=== PATIENT | male | born 1935 | race Caucasian/White ===

== ENCOUNTER 2017-12-26 06:41 | Emergency (ER) | payer BC, OTHER ==
[2017-12-26 06:59] VITALS: TEMP 99.7; BMI 24.9
--- NOTE | 2017-12-26 07:12 | PDOC ---
History of Present Illness - General Chief Complaint: Respiratory Stated Complaint: COUGH Time Seen by Provider: 12/26/17 07:12 - History of Present Illness Initial Comments: 12/26/17 07:12 Mr. Phipps is an 82 yo male w/ pmh of HTN, HLD, asthma, and CABG ( approx. 15 years ago) who presents c/o a 2 day history of cough. He denies any sputum production but says that he came in because he was up all last night coughing. Patient also reports that he has run out of his inhaler medication. The patient denies chest pain, shortness of breath, headache and dizziness. Denies fever, chills, nausea, vomit, diarrhea and constipation. Denies dysuria, frequency, urgency and hematuria. Allergies: NKDA Past History - Past Medical History Allergies/Adverse Reactions: Allergies Allergy/AdvReac Type Severity Reaction Status Date / Time No Known Allergies Allergy Verified 12/26/17 06:59 Home Medications: Ambulatory Orders Albuterol Sulfate Inhaler - [Ventolin Hfa Inhaler -] 1 puff IH PRN PRN #1 inhaler 12/26/17 Clopidogrel Bisulfate [Plavix] 75 mg PO DAILY 12/26/17 Hydrochlorothiazide 12.5 mg PO DAILY 12/26/17 Montelukast Sodium [Singulair] 10 mg PO DAILY 12/26/17 Prednisone [Deltasone] 40 mg PO DAILY 4 Days #8 tablet 12/26/17 Simvastatin 40 mg PO DAILY 12/26/17 - Suicide/Smoking/Psychosocial Hx Smoking History: Never smoked Have you smoked in the past 12 months: No Information on smoking cessation initiated: No Hx Alcohol Use: No Drug/Substance Use Hx: No Review of Systems - Review of Systems Comments:: 12/26/17 07:44 GENERAL/CONSTITUTIONAL: No fever or chills. No weakness. HEAD, EYES, EARS, NOSE AND THROAT: No change in vision. No ear pain or discharge. No sore throat. CARDIOVASCULAR: No chest pain or shortness of breath RESPIRATORY: +Cough as described. No wheezing or hemoptysis. GASTROINTESTINAL: No nausea, vomiting, diarrhea or constipation. GENITOURINARY: No dysuria, frequency, or change in urination. MUSCULOSKELETAL: No joint or muscle swelling or pain. No neck or back pain. SKIN: No rash NEUROLOGIC: No headache, vertigo, loss of consciousness, or change in strength/ sensation. ENDOCRINE: No increased thirst. No abnormal weight change HEMATOLOGIC/LYMPHATIC: No anemia, easy bleeding, or history of blood clots. ALLERGIC/IMMUNOLOGIC: No hives or skin allergy. *Physical Exam - Vital Signs Last Vital Signs Temp Pulse Resp BP Pulse Ox 99.7 F H 69 22 159/84 97 12/26/17 06:57 12/26/17 06:57 12/26/17 06:57 12/26/17 06:57 12/26/17 06:57 - Physical Exam Comments: 12/26/17 07:44 GENERAL: Awake, alert, and fully oriented, in no acute distress HEAD: No signs of trauma, normocephalic, atraumatic EYES: PERRLA, EOMI, sclera anicteric, conjunctiva clear ENT: Auricles normal inspection, hearing grossly normal, nares patent, oropharynx clear without exudates. Moist mucosa NECK: Normal ROM, supple, no lymphadenopathy, JVD, or masses LUNGS: +Mild tightness noted in lungs. Speaks full sentences HEART: Regular rate and rhythm, normal S1 and S2, no murmurs, rubs or gallops, peripheral pulses normal and equal bilaterally. ABDOMEN: Soft, nontender, normoactive bowel sounds. No guarding, no rebound. No masses EXTREMITIES: Normal inspection, Normal range of motion, no edema. No clubbing or cyanosis. NEUROLOGICAL: Cranial nerves II through XII grossly intact. Normal speech, normal gait, no focal sensorimotor deficits SKIN: Warm, Dry, normal turgor, no rashes or lesions noted. ED Treatment Course - LABORATORY CBC & Chemistry Diagram: 12/26/17 07:48 12/26/17 07:48 Medical Decision Making - Medical Decision Making 12/26/17 09:23 Mr. Phipps is an 82 yo male w/ pmh as described presenting with acute viral asthma exacerbation. Patient grabs grossly wnl as below; CXR shows no acute pathology. Patient currently oxygenating well after single duo-neb treatment. 12/26/17 09:37 Prednisone burst therapy and new Rx for rescue inhaler sent to patient's pharmacy. Patient now able to ambulate without difficulty or SOB throughout unit. Discharging to home w/ instructions to f/u w/ PCP for further care. Patient verbalized understanding and agreement and will comply. *DC/Admit/Observation/Transfer Diagnosis at time of Disposition: Cough - Discharge Dispostion Disposition: HOME Condition at time of disposition: Fair - Prescriptions Prescriptions: Albuterol Sulfate Inhaler - [Ventolin Hfa Inhaler -] 1 puff IH PRN PRN #1 inhaler PRN Reason: Dyspnea Prednisone [Deltasone] 40 mg PO DAILY 4 Days #8 tablet - Referrals Referrals: ON STAFF,NOT [Primary Care Provider] - Lorenzo Hatch MD [Staff Physician] - - Patient Instructions Printed Discharge Instructions: DI for Asthma -- Adult, DI for Cough -- Adult Additional Instructions: Please return if any difficulty breathing or continued cough. Follow-up with primary care physician as needed for further evaluation. Take prescriptions as written for relief from symptoms. - Post Discharge Activity
--- NOTE | 2017-12-26 07:36 | PDOC ---
Attending Attestation - Resident Resident Name: RolandnakulashelyKuldipNikko - ED Attending Attestation I have performed the following: I have examined & evaluated the patient, The case was reviewed & discussed with the resident, I agree w/resident's findings & plan, Exceptions are as noted - HPI HPI: 12/26/17 07:35 82y M from [place] , pmhx htn, hl, cad sp cabg, asthmapresents with 2 day history of cough, no spuutm production, body aches, fever/chills, congestion, leg swelling, hemoptysis, stahl, orthopnea. No sick contacts but endorses recent travel from [place]. On exam pt well appearing in no distress scattered wheez on pulm exam cardiac: 5/6 systolic murmer, r r r abd soft nontender ext: neg edema, no calf tenderness, neg homans suspect viral syndrome - Physicial Exam PE: 12/26/17 16:18 see above - Medical Decision Making 12/26/17 09:34 pt feeling improved abmulating around the ED without any sob or stahl will dc with steroid burst and albuterol pmd fu return precautions were discussed I discussed the physical exam findings, ancillary test results and final diagnoses with the patient. I answered all of the patient's questions. The patient was satisfied with the care received and felt comfortable with the discharge plan and treatment plan. The patient will call their primary care physician within 24 hours to arrange follow-up and will return to the Emergency Department with any new, persistent or worsening symptoms. Heart Score/ECG Review - ECG Impressions Comment:: 12/26/17 09:34 Twelve-lead EKG was performed and reviewed by me. There is normal sinus rhythm with a normal rate. Rate of 74 The axis is normal. The intervals are normal. There is normal R wave progression Nonspecific T wave abnormality
[2017-12-26] MEDS ORDERED: ALBUTEROL SO4 2.5/IPRATROPIUM 0.5 INH SOL 3 ML VIAL.NEB. NEB ONE (07:50)
[2017-12-26 08:13] LABS: EOS % 2.2 % (0-4.5); HEMATOCRIT 39.4 % (35.4-49); HEMOGLOBIN 12.7 GM/dL (11.7-16.9); LYMPH % 11.2 % (8-40); MCH 29.2 pg (25.7-33.7); MCHC 32.1 g/dl (32.0-35.9); MEAN PLT VOLUME 10.7 fl (7.5-11.1); MONO % 17.6 % (3.8-10.2); PLATELET COUNT 149 K/MM3 (134-434); RBC 4.33 M/mm3 (4.00-5.60); RDW 13.7 % (11.9-15.9); WHITE BLOOD COUNT 6.5 K/mm3 (4.0-10.0)
[2017-12-26 08:32] LABS: ALBUMIN 4.2 g/dl (3.4-5.0); ANION GAP 8 (8-16); BLOOD UREA NITROGEN 15 mg/dL (7-18); CALCIUM 8.2 mg/dL (8.5-10.1); CHLORIDE 105 mmol/L (98-107); CO2 27 mmol/L (21-32); CREATININE 1.7 mg/dL (0.7-1.3); GLUCOSE,RANDOM 90 mg/dL (74-106); POTASSIUM 4.9 mmol/L (3.5-5.1); SGOT/AST 22 U/L (15-37); SGPT/ALT 20 U/L (12-78); SODIUM 140 mmol/L (136-145)
[2017-12-26 08:36] LABS: ALK PHOS 85 U/L (45-117); BILIRUBIN,TOTAL 0.6 mg/dL (0.2-1.0); TOT PROT 7.8 g/dl (6.4-8.2)
[2017-12-26 09:55] VITALS: BP 123/60; PULSE 74
--- NOTE | 2017-12-26 18:34 | EKG ---
Test Reason : Blood Pressure : / mmHG Vent. Rate : 074 BPM Atrial Rate : 074 BPM P-R Int : 190 ms QRS Dur : 066 ms QT Int : 364 ms P-R-T Axes : 071 034 092 degrees QTc Int : 404 ms NORMAL SINUS RHYTHM NONSPECIFIC T WAVE ABNORMALITY ABNORMAL ECG WHEN COMPARED WITH ECG OF 14-FEB-2009 15:10, NO SIGNIFICANT CHANGE WAS FOUND Confirmed by MD ABILIO, RENEA ([id number]) on 12/26/2017 6:33:48 PM Referred By: Confirmed By:RENEA KNOX MD
== END 2017-12-26 09:55 | disposition home or self-care (01) ==
LOC: JER 06:41 → SUPCPDRO 06:41 → JER 09:55
PROC: 3E0F7GC Introduction of Other Therapeutic Substance into Respiratory Tract, Via Natural or Artificial Opening (ICD-10-PCS; principal; 2017-12-26)
DX: J45.901 Unspecified asthma with (acute) exacerbation (principal); I25.10 Atherosclerotic heart disease of native coronary artery without angina pectoris; I10 Essential (primary) hypertension; Z95.1 Presence of aortocoronary bypass graft; E78.00 Pure hypercholesterolemia, unspecified
CPT/HCPCS: 36415; 71046-TC-FY; 80053; 82550; 82553; 84484; 85025; 93005; 93010; 94640; 99285-25

== ENCOUNTER 2019-01-31 10:41 | Observation (INO) | payer BC, OTHER ==
[2019-01-31 11:09] VITALS: BMI 27.3
[2019-01-31] MEDS ORDERED: methylPREDNISolone NA SUCC 125 MG/2 ML VIAL IVPB ONE (12:10)
--- NOTE | 2019-01-31 12:25 | PDOC ---
Attending Attestation - Resident Resident Name: YovannyBruce - ED Attending Attestation I have performed the following: I have examined & evaluated the patient, The case was reviewed & discussed with the resident, I agree w/resident's findings & plan, Exceptions are as noted - HPI HPI: 01/31/19 12:31 Pt is an 83 yo M h/o CAD s/p PCI, stent, CABG, Asthma, BPH who present with a complaint of cough which has been present for the past 3 days No chest pain, fevers, chills No palpitations Pt denies orthopnea Pt denies dyspnea on exertion Pt travelled from [place] 1 month ago 01/31/19 12:48 - Physicial Exam PE: 01/31/19 12:29 GENERAL: The patient is in no acute distress. ENT: Ears normal, nares patent, oropharynx clear without exudates. Moist mucous membranes. NECK: Normal range of motion, supple, no nuchal rigidity LUNGS: Breath sounds equal, clear to auscultation bilaterally. No wheezes, and no crackles. HEART:Regular rate and rhythm, normal S1 and S2 without murmur, rub or gallop. ABDOMEN: Soft, nontender, normoactive bowel sounds. EXTREMITIES: Normal range of motion, no edema. NEUROLOGICAL: Cranial nerves II through XII grossly intact. Normal speech. No focal neurological deficits. SKIN: Warm, Dry, normal turgor, no rashes or lesions noted. - Medical Decision Making 01/31/19 12:29 EKG: Afib rate of 73 bpm, axis nml, no st elevation or depression, t waves upright 01/31/19 12:30 01/31/19 13:44 Laboratory Tests 01/31/19 01/31/19 12:43 12:43 WBC 7.7 Hgb 13.2 Hct 39.4 Plt Count 194 D BUN 13 Creatinine 1.4 H Creatine Kinase 307 Troponin I 0.02 New onset Afib Upper respiratory infection Will place on observation CXR- pending 01/31/19 15:45 EKG - Afib rate of 102 bpm, axis nml, intervals nml, no st elevation or depression Cardizem 10mg IV given Cardizem po given Cardiology consult
--- NOTE | 2019-01-31 12:47 | PDOC ---
History of Present Illness - General Chief Complaint: Respiratory Stated Complaint: ASTHMA Time Seen by Provider: 01/31/19 12:00 History Source: Patient Exam Limitations: No Limitations - History of Present Illness Initial Comments: 01/31/19 12:47 Patient is a 83F with history of HTN, HLD, asthma, CABG 15 years ago here today complaining of cough and shortness of breath for the past 3 days. Denies fevers , chills, nausea, vomiting. Denies chest pain, palpitations. Denies history of afib, not on blood thinners. Denies leg swelling[place] Takes plavix. Endorses sputum change. No PE history. No leg swelling. Past History - Past Medical History Allergies/Adverse Reactions: Allergies Allergy/AdvReac Type Severity Reaction Status Date / Time Penicillins Allergy Verified 01/31/19 11:00 Home Medications: Ambulatory Orders Albuterol Sulfate Inhaler - [Ventolin Hfa Inhaler -] 1 puff IH PRN PRN #1 inhaler 12/26/17 Clopidogrel Bisulfate [Plavix] 75 mg PO DAILY 12/26/17 Hydrochlorothiazide 12.5 mg PO DAILY 12/26/17 Montelukast Sodium [Singulair] 10 mg PO DAILY 12/26/17 Prednisone [Deltasone] 40 mg PO DAILY 4 Days #8 tablet 12/26/17 Simvastatin 40 mg PO DAILY 12/26/17 Cardiac Disorders: Yes COPD: No HTN: Yes Hypercholesterolemia: Yes - Suicide/Smoking/Psychosocial Hx Smoking History: Former smoker Have you smoked in the past 12 months: No Information on smoking cessation initiated: Yes Hx Alcohol Use: No Drug/Substance Use Hx: No Substance Use Type: None Review of Systems - Review of Systems Able to Perform ROS?: Yes Comments:: 01/31/19 12:50 GENERAL/CONSTITUTIONAL: No fever or chills. No weakness. HEAD, EYES, EARS, NOSE AND THROAT: No change in vision. NNo sore throat. CARDIOVASCULAR: No chest pain or shortness of breath RESPIRATORY: +cough, +wheezing, no hemoptysis. GASTROINTESTINAL: No nausea, vomiting, diarrhea or constipation. GENITOURINARY: No dysuria, frequency, or change in urination. MUSCULOSKELETAL: No joint or muscle swelling or pain. No neck or back pain. SKIN: No rash NEUROLOGIC: No headache, vertigo, loss of consciousness, or change in strength/ sensation. ENDOCRINE: No increased thirst. No abnormal weight change HEMATOLOGIC/LYMPHATIC: No anemia, easy bleeding, or history of blood clots. ALLERGIC/IMMUNOLOGIC: No hives or skin allergy. *Physical Exam - Vital Signs Last Vital Signs Temp Pulse Resp BP Pulse Ox 99.1 F 83 17 127/56 L 97 01/31/19 11:01 01/31/19 11:01 01/31/19 11:01 01/31/19 11:01/31/19 11:01 - Physical Exam Comments: 01/31/19 12:51 GENERAL: Awake, alert, and fully oriented, in no acute distress HEAD: No signs of trauma, normocephalic, atraumatic EYES: PERRLA, EOMI, sclera anicteric, conjunctiva clear ENT: Auricles normal inspection, hearing grossly normal, nares patent, oropharynx clear without exudates. Moist mucosa NECK: Normal ROM, supple, no lymphadenopathy, JVD, or masses LUNGS: No distress, speaks full sentences, wheezing bilaterally HEART: Regular rate and rhythm, normal S1 and S2, no murmurs, rubs or gallops, peripheral pulses normal and equal bilaterally. ABDOMEN: Soft, nontender, normoactive bowel sounds. No guarding, no rebound. No masses EXTREMITIES: Normal inspection, Normal range of motion, no edema. No clubbing or cyanosis. NEUROLOGICAL: Cranial nerves II through XII grossly intact. Normal speech, no focal sensorimotor deficits SKIN: Warm, Dry, normal turgor, no rashes or lesions noted. ED Treatment Course - LABORATORY CBC & Chemistry Diagram: 01/31/19 12:43 01/31/19 12:43 - RADIOLOGY Radiology Studies Ordered: Category Date Time Status CHEST PA & LAT [RAD] Stat Radiology 01/31/19 12:07 Ordered Medical Decision Making - Medical Decision Making 01/31/19 12:51 Patient is 83M with history of HTN, HLD, asthma and CABG here today complaining of cough and shortness of breath. Vitals normal and stable. DDx includes, but is not limited to: copd, asthma, pneumonia, chf. Likely copd/asthma exacerbation. Will treat with duonebs and steroids. EKG shows afib with rate of 73. No st elevations/depressions. Normal axis. Normal intervals. No significant t wave abnormalities. No history of afib, medication list confirmed with pharmacy. Will likely require obs. 01/31/19 14:39 CBC reassuring. CMP reassuring. Trop negative. CXR clear. Patient reassessed, lungs now clear, feeling better. Will admit for new-onset afib. 01/31/19 15:25 On reassessment, HR 135. BP 130s/70s. Given 10mg dilt, HR now in 80s, bps stable. Given po chaser. Case discussed with Dr Mcnair, accepted to tele. *DC/Admit/Observation/Transfer Diagnosis at time of Disposition: New onset a-fib, Atrial fibrillation with RVR - Discharge Dispostion Condition at time of disposition: Stable Decision to Admit order: Yes - Referrals Referrals: ON STAFF,NOT [Primary Care Provider] - - Patient Instructions - Post Discharge Activity
[2019-01-31 12:55] LABS: HEMATOCRIT 39.4 % (35.4-49); HEMOGLOBIN 13.2 GM/dL (11.7-16.9); LYMPH % 28.8 % (8-40); MCH 29.6 pg (25.7-33.7); MCHC 33.6 g/dl (32.0-35.9); MEAN CELL VOLUME 88.2 fl (80-96); MEAN PLT VOLUME 10.1 fl (7.5-11.1); MONO % 18.7 % (3.8-10.2); NEUT % 49.5 % (42.8-82.8); PLATELET COUNT 194 K/MM3 (134-434); RBC 4.47 M/mm3 (4.00-5.60); RDW 13.2 % (11.9-15.9); WHITE BLOOD COUNT 7.7 K/mm3 (4.0-10.0)
[2019-01-31] MEDS ORDERED: ALBUTEROL SO4 2.5/IPRATROPIUM 0.5 INH SOL 3 ML VIAL.NEB. NEB ONE ×3 (12:55→20:20)
[2019-01-31] MEDS ORDERED: methylPREDNISolone NA SUCC 125 MG/2 ML VIAL ONE (12:56)
[2019-01-31] MEDS: ALBUTEROL SO4 2.5/IPRATROPIUM 0.5 INH SOL 3 ML VIAL.NEB. NEB SCH ×3 (13:13→20:40)
[2019-01-31 13:16] LABS: INR 1.03 (0.83-1.09); PROTHROMBIN TIME (PATIENT) 12.1 SEC (9.7-13.0)
[2019-01-31 13:32] LABS: ALBUMIN 3.7 g/dl (3.4-5.0); ALK PHOS 98 U/L (45-117); ANION GAP 7 MMOL/L (8-16); BILIRUBIN,TOTAL 0.4 mg/dL (0.2-1); BLOOD UREA NITROGEN 13 mg/dL (7-18); CALCIUM 9.1 mg/dL (8.5-10.1); CHLORIDE 104 mmol/L (98-107); CO2 26 mmol/L (21-32); CREATININE 1.4 mg/dL (0.55-1.3); GLUCOSE,RANDOM 92 mg/dL (74-106); MAGNESIUM 2.4 mg/dL (1.8-2.4); POTASSIUM 4.3 mmol/L (3.5-5.1); SGOT/AST 24 U/L (15-37); SGPT/ALT 25 U/L (13-61); SODIUM 136 mmol/L (136-145); TOT PROT 7.4 g/dl (6.4-8.2)
[2019-01-31] MEDS ORDERED: dilTIAZem HCL 50 MG/10 ML - 10 ML VIAL IVPUSH ONE (15:12)
[2019-01-31] MEDS ORDERED: SODIUM CHLORIDE 1,000 ML IV STA (15:12)
[2019-01-31] MEDS ORDERED: dilTIAZem HCL 125 MG/25 ML - 25 ML VIAL ONE (15:15)
[2019-01-31] MEDS ORDERED: dilTIAZem HCL 60 MG TABLET (FP) PO ONE (15:25)
[2019-01-31] MEDS ORDERED: dilTIAZem HCL 60 MG TABLET (FP) ONE (15:29)
[2019-01-31] MEDS ORDERED: LEVALBUTEROL HCL 0.31 MG/3 ML VIAL.NEB IH PRN (15:58)
[2019-01-31] MEDS ORDERED: HEPARIN NA (PORCINE) 5,000 UNITS/ML 1ML VIAL IVPUSH PRN ×2 (15:59)
[2019-01-31] MEDS ORDERED: HEPARIN SOD,PORK IN 0.45% NACL 25,000 UNIT/500 ML INFUS.BAG IVPB SCH (16:00)
--- NOTE | 2019-01-31 16:05 | PN ---
Teaching Attending Note Name of Resident: Chantale Mcnair ATTENDING PHYSICIAN STATEMENT I saw and evaluated the patient. I reviewed the resident's note and discussed the case with the resident. I agree with the resident's findings and plan as documented with exceptions below. [employer]: Dr. Sander Huffman and [phone] PCP: Dr. Fay Prather SUBJECTIVE: 83 yom, from [place], with PMHx of HTN, HLD, COPD/asthma, ex-heavy smoker, CAD s/p CABG 15 years ago (No hospitalization since per patient),?CKD stage II comes with 3 days of dry non productive cough, shortness of breath and URI like symptoms. Denies any fevers, chills, chest pain, palpitations, dizziness, abdominal or urinary symptoms. patient unsure if has been on a blood thinner in the past. 12 point ROS done, neg for prior headache, bleed or dark or bloody stools. Feels better currently. Was noted with Afib 73 in the ED, ?new onset. HR 110-130s in the ED, currently 80s OBJECTIVE: Vital Signs Period Temp Pulse Resp BP Sys/Dangelo Pulse Ox Last 24 Hr 99.1 F 80-112 14-17 127-185/56-83 97-100 Intake & Output 01/28/19 01/29/19 01/30/19 01/31/19 23:59 23:59 23:59 23:59 Weight 140 lb GENERAL: Awake, alert, and fully oriented, in no acute distressm, noted with coughing paroxysms during the exam. HEAD: Normal with no signs of trauma. EYES: Pupils equal, round and reactive to light, extraocular movements intact, sclera anicteric, conjunctiva clear. No lid lag. EARS, NOSE, THROAT: Ears normal, nares patent, oropharynx clear without exudates. Moist mucous membranes. NECK: Normal range of motion, supple, no JVD visualized LUNGS: decreased air entry bilaterally, no wheezing or rales appreciated HEART: S1S2 irregularly irregular in left parasternal region ABDOMEN: Soft, nontender, not distended, normoactive bowel sounds, no guarding, no rebound, no masses. MUSCULOSKELETAL: Normal range of motion at all joints. No bony deformities or tenderness. No CVA tenderness. UPPER EXTREMITIES: 2+ pulses, warm, well-perfused. No cyanosis. No clubbing. No peripheral edema. LOWER EXTREMITIES: 2+ pulses, warm, well-perfused. No calf tenderness. No peripheral edema. NEUROLOGICAL: AAOx3, power 5/5 sensation intact to lightCranial nerves II-XII intact. Normal speech. Normal gait. PSYCHIATRIC: Cooperative. Good eye contact. Appropriate mood and affect. SKIN: Warm, dry, normal turgor, no rashes or lesions noted, normal capillary refill. Home Medications Medication Instructions Recorded Albuterol Sulfate Inhaler - 1 - 2 inh PO Q4H PRN 01/31/19 [Ventolin Hfa Inhaler -] Amlodipine Besylate 5 mg PO DAILY 01/31/19 Clopidogrel Bisulfate [Plavix] 75 mg PO DAILY 01/31/19 Hydralazine HCl 25 mg PO BID 01/31/19 Montelukast Sodium [Singulair] 10 mg PO DAILY 01/31/19 Simvastatin 40 mg PO DAILY 01/31/19 Tamsulosin HCl [Flomax] 0.4 mg PO DAILY 01/31/19 Active Medications Albuterol/Ipratropium (Duoneb -) 1 amp NEB RQID KYA Atorvastatin Calcium (Lipitor -) 20 mg PO HS KYA Diltiazem HCl (Cardizem -) 30 mg PO Q6HPO [facility] Heparin Sodium (Porcine) (Heparin -) 1,000 unit IVPUSH PRN PRN PRN Reason: Heparin Heparin Sodium (Porcine) (Heparin -) 5,000 unit IVPUSH PRN PRN PRN Reason: Heparin HEPARIN SOD,PORK IN 0.45% NACL (Heparin-1/2ns 25,000 Units/500) 25,000 unit in 500 mls @ 16 mls/hr IVPB TITR KYA; Protocol Levalbuterol HCl (Xopenex) 0.31 mg IH Q8H PRN PRN Reason: ASTHMA Montelukast Sodium (Singulair -) 10 mg PO DAILY KYA Prednisone (Deltasone -) 40 mg PO DAILY [facility] Laboratory Results - last 24 hr 01/31/19 01/31/19 01/31/19 12:43 12:43 12:43 WBC 7.7 RBC 4.47 Hgb 13.2 Hct 39.4 MCV 88.2 MCH 29.6 MCHC 33.6 RDW 13.2 Plt Count 194 D MPV 10.1 Absolute Neuts (auto) 3.8 Neutrophils % 49.5 D Lymphocytes % 28.8 D Monocytes % 18.7 H Eosinophils % 2.0 Basophils % 1.0 Nucleated RBC % 0 PT with INR 12.10 INR 1.03 Sodium 136 Potassium 4.3 Chloride 104 Carbon Dioxide 26 Anion Gap 7 L BUN 13 Creatinine 1.4 H Creat Clearance w eGFR 48.40 Random Glucose 92 Calcium 9.1 Magnesium 2.4 Total Bilirubin 0.4 AST 24 ALT 25 Alkaline Phosphatase 98 Creatine Kinase 307 Creatine Kinase Index 0.6 CK-MB (CK-2) 2.1 Troponin I 0.02 Total Protein 7.4 Albumin 3.7 Telemetry currently Afib 80s (HR 110s-130s around 2 PM, aflutter/fibrillation EKG 1 Afib 73, no acute ST-T changes EKG 2 Afib 100s, otherwise unchanged CXR images reviewed by me, no acute process, follow up official read ASSESSMENT AND PLAN: 83 yom, from [place], with PMHx of HTN, HLD, COPD/asthma, ex-heavy smoker, CAD s/p CABG 15 years ago (No hospitalization since per patient),?CKD stage II admitted with COPD exacerbation, found with Afib with RVR -Acute COPD exacerbation in the setting of recent URI like symptoms -Afib with RVR, ?New onset -Elevated Cr, 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 Unclear if afib is new. Cardizem 30mg PO q6h. Hold other anti-htn medications to allow room for rate controlling agents. 2D echo CHADSVasc2 of 4. Patient on plavix but reports no hospitalization or concerns since his CABG 15 years ago, no recent stents. Given CKD, will place on heparin drip and likely transition to NOAC if Echo confirms non valvular Afib. Hold plavix tonight. Cardiology consult and follow up for additonal AC recommendations. Patient's hotel breakfast attendant Dr. Boucher's office contacted, ([phone]). Will be available tomorrow 11 AM. Will retrieve more information in AM [id number] as above Dispo admit to obs, d/c in 24 hours if rate controlled, breathing better and no new events. Plan discussed with patient in detail, all questions answered. total admit time 55 min.
--- NOTE | 2019-01-31 16:10 | HP ---
CHIEF COMPLAINT: sob PCP: HISTORY OF PRESENT ILLNESS: This is a 83 year old male from [place], visiting, past medical history significant for CABG, CAD, HTN, asthma, former smoker, who presents with shortness of breath and productive cough with yellow sputum production x3 days. Found to be in atrial fibrillation with RVR in ER. Denies FRANCES< blurry vision, fever, chills, n, v, palpitations, orthopnea, edema, melena. Recent Travel: yes form [place] PAST MEDICAL HISTORY: CABG many years ago, HTN, HLD, asthma PAST SURGICAL HISTORY: CABG Social History: Smoking:quit 20yrs ago; smoked >40yrs Alcohol:no Drugs: no Family History: Allergies Penicillins Allergy (Verified 01/31/19 11:00) HOME MEDICATIONS: Home Medications Medication Instructions Recorded Albuterol Sulfate Inhaler - 1 puff IH PRN PRN #1 inhaler 12/26/17 [Ventolin Hfa Inhaler -] Clopidogrel Bisulfate [Plavix] 75 mg PO DAILY 12/26/17 Montelukast Sodium [Singulair] 10 mg PO DAILY 12/26/17 Simvastatin 40 mg PO DAILY 12/26/17 REVIEW OF SYSTEMS CONSTITUTIONAL: Absent: fever, chills, diaphoresis, generalized weakness, malaise, loss of appetite, weight change HEENT: Absent: rhinorrhea, nasal congestion, throat pain, throat swelling, difficulty swallowing, mouth swelling, ear pain, eye pain, visual changes CARDIOVASCULAR: Absent: chest pain, syncope, palpitations, irregular heart rate, lightheadedness , peripheral edema RESPIRATORY: Absent: cough, shortness of breath, dyspnea with exertion, orthopnea, wheezing, stridor, hemoptysis GASTROINTESTINAL: Absent: abdominal pain, abdominal distension, nausea, vomiting, diarrhea, constipation, melena, hematochezia GENITOURINARY: Absent: dysuria, frequency, urgency, hesitancy, hematuria, flank pain, genital pain MUSCULOSKELETAL: Absent: myalgia, arthralgia, joint swelling, back pain, neck pain SKIN: Absent: rash, itching, pallor HEMATOLOGIC/IMMUNOLOGIC: Absent: easy bleeding, easy bruising, lymphadenopathy, frequent infections ENDOCRINE: Absent: unexplained weight gain, unexplained weight loss, heat intolerance, cold intolerance NEUROLOGIC: Absent: headache, focal weakness or paresthesias, dizziness, unsteady gait, seizure, mental status changes, bladder or bowel incontinence PSYCHIATRIC: Absent: anxiety, depression, suicidal or homicidal ideation, hallucinations. PHYSICAL EXAMINATION Vital Signs - 24 hr 01/31/19 01/31/19 01/31/19 11:01 13:24 15:20 Temperature 99.1 F Pulse Rate 83 Pulse Rate [ 80 112 H Right Radial] Respiratory 17 16 14 Rate Blood Pressure 127/56 L Blood Pressure 185/83 H 135/74 [Left Arm] O2 Sat by Pulse 97 100 98 Oximetry (%) 01/31/19 15:34 Temperature Pulse Rate Pulse Rate [ 90 Right Radial] Respiratory Rate Blood Pressure Blood Pressure [Left Arm] O2 Sat by Pulse Oximetry (%) GENERAL: Awake, alert, and fully oriented, in no acute distress. HEAD: Normal with no signs of trauma. EYES: Pupils equal, round and reactive to light, extraocular movements intact, sclera anicteric, conjunctiva clear. No lid lag. EARS, NOSE, THROAT: Ears normal, nares patent, oropharynx clear without exudates. Moist mucous membranes. NECK: Normal range of motion, supple without lymphadenopathy, JVD, or masses. LUNGS: decrease breath sounds; mild wheeze HEART: Regular rate and rhythm, normal S1 and S2 +murmur, rub or gallop. ABDOMEN: Soft, nontender, not distended, normoactive bowel sounds, no guarding, no rebound, no masses. No hepatomegaly or splenomegaly. MUSCULOSKELETAL: Normal range of motion at all joints. No bony deformities or tenderness. No CVA tenderness. UPPER EXTREMITIES: 2+ pulses, warm, well-perfused. No cyanosis. No clubbing. No peripheral edema. LOWER EXTREMITIES: 2+ pulses, warm, well-perfused. No calf tenderness. No peripheral edema. NEUROLOGICAL: Cranial nerves II-XII intact. Normal speech. PSYCHIATRIC: Cooperative. Good eye contact. Appropriate mood and affect. SKIN: Warm, dry, normal turgor, no rashes or lesions noted, normal capillary refill. Laboratory Results - last 24 hr 01/31/19 01/31/19 01/31/19 12:43 12:43 12:43 WBC 7.7 RBC 4.47 Hgb 13.2 Hct 39.4 MCV 88.2 MCH 29.6 MCHC 33.6 RDW 13.2 Plt Count 194 D MPV 10.1 Absolute Neuts (auto) 3.8 Neutrophils % 49.5 D Lymphocytes % 28.8 D Monocytes % 18.7 H Eosinophils % 2.0 Basophils % 1.0 Nucleated RBC % 0 PT with INR 12.10 INR 1.03 Sodium 136 Potassium 4.3 Chloride 104 Carbon Dioxide 26 Anion Gap 7 L BUN 13 Creatinine 1.4 H Creat Clearance w eGFR 48.40 Random Glucose 92 Calcium 9.1 Magnesium 2.4 Total Bilirubin 0.4 AST 24 ALT 25 Alkaline Phosphatase 98 Creatine Kinase 307 Creatine Kinase Index 0.6 CK-MB (CK-2) 2.1 Troponin I 0.02 Total Protein 7.4 Albumin 3.7 ASSESSMENT/PLAN: This is a 83 year old male with a history of CABG, HTN, HLD, who presents with sob/cough with sputum production, found to be in rapid atrial fibrillation with RVR. #new onset atrial fibrillation with RVR -s/p IV cardizem -will give po cardizem for now; -get echo to eval LV function; then decided which rate control to give -start heparin drip for [id number] score 3 -PTT -TSH -cardiac monitoring -cardio consult #sob; possible sec to COPD? /asthma exacerbation from URI? -duonebs -steroids -monitor o2 -hold off on antibiotics -cxr -influenza swap -urine antigens -sptutm culture #HTN: -on hydralizine 25 bid at home -lisinopril 20qd #CKD hx; -cr 1.7 here; last year recorded here was 1.7; -not acute #hx cabg VTE ppl a; on heparin drip GIppl ;zant Disposition; tele Visit type - Emergency Visit Emergency Visit: Yes Care time: The patient presented to the Emergency Department on the above date and was hospitalized for further evaluation of their emergent condition. - New Patient This patient is new to me today: Yes Date on this admission: 01/31/19 - Critical Care Critical Care patient: No
[2019-01-31] MEDS ORDERED: ALBUTEROL SO4 0.083% IH SOL 2.5 MG/3 ML VIAL.NEB. NEB PRN (16:29)
[2019-01-31] MEDS ORDERED: HEPARIN INFUSION - 25,000 UNITS/500 ML INFUS.BAG IVPB ONE (16:29)
[2019-01-31] MEDS ORDERED: dilTIAZem HCL 50 MG/10 ML - 10 ML VIAL IVPUSH PRN (16:32)
[2019-01-31] MEDS ORDERED: dilTIAZem HCL 30 MG TABLET (FP) ONE (18:05)
[2019-01-31] MEDS: dilTIAZem HCL 30 MG TABLET (FP) PO SCH (18:27)
--- NOTE | 2019-01-31 23:42 | CON.CARD ---
Consult Consult Specialty:: cardiology Reason for Consultation:: ?new-onset AF - History of Present Illness History of Present Illness: Pt is an 83 yo man with h/o CAD s/p PCI, stent, CABG, Asthma, BPH who present with a complaint of cough which has been present for the past 3 days No chest pain, fevers, chills No palpitations Pt denies orthopnea Pt denies dyspnea on exertion Pt travelled from [place] 1 month ago Pt was noted to be in AF (no prior hx of the arrhythmia); HR later accelerated. - History Source History Provided By: Patient, Medical Record - Past Medical History Cardio/Vascular: Yes: CAD, HTN Pulmonary: Yes: Asthma - Past Surgical History Past Surgical History: Yes: CABG, Stent - Alcohol/Substance Use Hx Alcohol Use: No - Smoking History Smoking history: Former smoker Have you smoked in the past 12 months: No Home Medications - Allergies Allergies/Adverse Reactions: Allergies Allergy/AdvReac Type Severity Reaction Status Date / Time Penicillins Allergy Verified 01/31/19 11:00 - Home Medications Home Medications: Ambulatory Orders Albuterol Sulfate Inhaler - [Ventolin Hfa Inhaler -] 1 - 2 inh PO Q4H PRN Amlodipine Besylate 5 mg PO DAILY 01/31/19 Clopidogrel Bisulfate [Plavix] 75 mg PO DAILY 01/31/19 Hydralazine HCl 25 mg PO BID 01/31/19 Montelukast Sodium [Singulair] 10 mg PO DAILY 01/31/19 Simvastatin 40 mg PO DAILY 01/31/19 Tamsulosin HCl [Flomax] 0.4 mg PO DAILY 01/31/19 Family Disease History - Family Disease History Family History: Denies - Risk Factors Known Risk Factors: Yes: Age, Gender, Hypercholesterolemia, Hypertension Vital Signs: Vital Signs Temperature 99.1 F 01/31/19 11:01 Pulse Rate 80 01/31/19 18:26 Respiratory Rate 20 01/31/19 18:26 Blood Pressure 110/56 L 01/31/19 18:26 O2 Sat by Pulse Oximetry (%) 96 01/31/19 18:26 - Other Data Labs, Other Data: CBC, BMP 01/31/19 12:43 01/31/19 12:43 INR, PTT INR 1.03 (0.83-1.09) 01/31/19 12:43 Troponin, BNP 01/31/19 12:43 Troponin I 0.02 Troponin, BNP 01/31/19 12:43 Troponin I 0.02 Abnormal Lab Results 01/31/19 01/31/19 01/31/19 12:43 12:43 23:05 Monocytes % 18.7 H Anion Gap 7 L Creatinine 1.4 H B-Natriuretic Peptide 3609.3 H Echo: Pending Imaging - Results Chest X-ray: Image Reviewed (no acute infiltrate) EKG: Image Reviewed Problem List - Problems (1) HTN (hypertension) Assessment/Plan: on diltiazem for HR and BP control. F/u ECHO for LVEF, Wall thickness. Code(s): I10 - ESSENTIAL (PRIMARY) HYPERTENSION (2) New onset a-fib Assessment/Plan: On diltiazem for HR control. On IV heparin for anticoagulation. ECHO for LVEF, wall motion and thickness, chamber sizes, valve status. 1st TNI < 0.02. F/u EKG; telemetry. Code(s): I48.91 - UNSPECIFIED ATRIAL FIBRILLATION (3) Cough Code(s): R05 - COUGH (4) Asthma Assessment/Plan: remote history Code(s): J45.909 - UNSPECIFIED ASTHMA, UNCOMPLICATED (5) Hyperlipidemia Assessment/Plan: on statin. F/u lipid profile. Code(s): E78.5 - HYPERLIPIDEMIA, UNSPECIFIED
[2019-02-01] MEDS ORDERED: dilTIAZem HCL 30 MG TABLET (FP) ONE ×3 (01:00→12:19)
[2019-02-01] MEDS: dilTIAZem HCL 30 MG TABLET (FP) PO SCH ×3 (01:05→12:21)
[2019-02-01 01:59] LABS: EPI CELLS 0.5 /HPF (0-5); URINE APPEARANCE CLEAR; URINE BACTERIA 1.4 /hpf (NEGATIVE); URINE BILIRUBIN NEGATIVE (NEGATIVE); URINE CASTS 4 /hpf (0-8); URINE COLOR YELLOW; URINE GLUCOSE (UA) NEGATIVE (NEGATIVE); URINE KETONE TRACE (NEGATIVE); URINE LEUK ESTERASE NEGATIVE (NEGATIVE); URINE NITRITE NEGATIVE (NEGATIVE); URINE PROTEIN 1+ (NEGATIVE); URINE RBC 2 /hpf (0-4); URINE UROBILINOGEN 0.2 mg/dL (0.2-1.0); URINE WBC 1 /hpf (0-5)
[2019-02-01 02:46] LABS: INR 1.13 (0.83-1.09); PROTHROMBIN TIME (PATIENT) 13.4 SEC (9.7-13.0)
[2019-02-01 05:56] LABS: INR 1.1 (0.83-1.09)
[2019-02-01 06:07] LABS: ACTIVATED PTT 93.2 SECONDS (25.2-36.5)
[2019-02-01 06:19] LABS: ANION GAP 8 MMOL/L (8-16); BLOOD UREA NITROGEN 30 mg/dL (7-18); CALCIUM 8.7 mg/dL (8.5-10.1); CHLORIDE 105 mmol/L (98-107); CO2 24 mmol/L (21-32); GLUCOSE,RANDOM 154 mg/dL (74-106); MAGNESIUM 2.2 mg/dL (1.8-2.4); PHOSPHOROUS 3.7 mg/dL (2.5-4.9); POTASSIUM 4.6 mmol/L (3.5-5.1); SODIUM 137 mmol/L (136-145)
[2019-02-01 07:29] LABS: CHOLESTEROL 132 mg/dL (50-200); HDL CHOLESTEROL 43 mg/dL (40-60); TRIGLYCERIDES 75 mg/dL (0-150)
[2019-02-01 07:55] LABS: BASO % 0.1 % (0-2.0); HEMATOCRIT 36.7 % (35.4-49); HEMOGLOBIN 12.1 GM/dL (11.7-16.9); LYMPH % 14.8 % (8-40); MCH 29.3 pg (25.7-33.7); MEAN CELL VOLUME 88.7 fl (80-96); MEAN PLT VOLUME 11.1 fl (7.5-11.1); MONO % 2.2 % (3.8-10.2); NEUT % 82.9 % (42.8-82.8); PLATELET COUNT 201 K/MM3 (134-434); RBC 4.14 M/mm3 (4.00-5.60); RDW 13.2 % (11.9-15.9); WHITE BLOOD COUNT 6.8 K/mm3 (4.0-10.0)
[2019-02-01] MEDS: ALBUTEROL SO4 2.5/IPRATROPIUM 0.5 INH SOL 3 ML VIAL.NEB. NEB SCH ×2 (08:07→12:21)
--- NOTE | 2019-02-01 08:29 | PN ---
Teaching Attending Note Name of Resident: Chantale Mcnair ATTENDING PHYSICIAN STATEMENT I saw and evaluated the patient. I reviewed the resident's note and discussed the case with the resident. I agree with the resident's findings and plan as documented. SUBJECTIVE: Mr Soni Nguyen is without complaint today. Denies cp, sob, n/v OBJECTIVE: Last Vital Signs Temp Pulse Resp BP Pulse Ox 36.9 C 65 16 115/56 L 94 L 02/01/19 06:20 02/01/19 06:20 02/01/19 06:20 02/01/19 06:20 02/01/19 06:20 Gen: nad Pulm: ctab but with slight tightness in chest but no w/r/r, not requiring oxygen CV: irreg irreg but rate controlled w/o m/r/g Abd: +bs, s/nt/nd Ext: no c/c/e CBC, BMP 02/01/19 05:10 02/01/19 05:10 ASSESSMENT AND PLAN: Problem List - Problems (1) Atrial fibrillation with RVR Assessment/Plan: -rate controlled -cardiology following -currently on diltiazem 30mg q6h -can change to cardizem cd 240mg daily on discharge -on heparin gtt -consider eliquis 2.5mg bid since over 80 and Cr over 1.5 -ECHO being performed, follow up results -possible discharge today if ECHO normal Code(s): I48.91 - UNSPECIFIED ATRIAL FIBRILLATION (2) HTN (hypertension) Assessment/Plan: -continue cardizem Code(s): I10 - ESSENTIAL (PRIMARY) HYPERTENSION (3) Hyperlipidemia Assessment/Plan: -continue lipitor Code(s): E78.5 - HYPERLIPIDEMIA, UNSPECIFIED (4) CKD (chronic kidney disease) Assessment/Plan: -baseline Code(s): N18.9 - CHRONIC KIDNEY DISEASE, UNSPECIFIED Qualifiers: Chronic kidney disease stage: stage 3 (moderate) Qualified Code(s): N18.3 - Chronic kidney disease, stage 3 (moderate) (5) Asthma Assessment/Plan: -on prednisone for a short course -continue duonebs -controlled Code(s): J45.909 - UNSPECIFIED ASTHMA, UNCOMPLICATED
[2019-02-01] MEDS ORDERED: MONTELUKAST NA 10 MG TABLET PO SCH (10:00)
[2019-02-01] MEDS ORDERED: predniSONE 20 MG TABLET (UD) PO SCH (10:00)
[2019-02-01] MEDS ORDERED: MONTELUKAST NA 10 MG TABLET ONE (10:07)
--- NOTE | 2019-02-01 10:13 | EKG ---
Test Reason : Blood Pressure : / mmHG Vent. Rate : 073 BPM Atrial Rate : 468 BPM P-R Int : 000 ms QRS Dur : 062 ms QT Int : 422 ms P-R-T Axes : 000 025 031 degrees QTc Int : 464 ms ATRIAL FIBRILLATION NONSPECIFIC T WAVE ABNORMALITY PROLONGED QT ABNORMAL ECG WHEN COMPARED WITH ECG OF 26-DEC-2017 08:02, ATRIAL FIBRILLATION HAS REPLACED SINUS RHYTHM NONSPECIFIC T WAVE ABNORMALITY NOW EVIDENT IN INFERIOR LEADS NONSPECIFIC T WAVE ABNORMALITY, IMPROVED IN LATERAL LEADS QT HAS LENGTHENED Confirmed by ALO LOUIE, CATARINA ([id number]) on 02/01/2019 10:13:09 AM Referred By: Confirmed By:CATARINA PRAJAPATI MD
--- NOTE | 2019-02-01 10:15 | EKG ---
Test Reason : Blood Pressure : / mmHG Vent. Rate : 061 BPM Atrial Rate : 061 BPM P-R Int : 212 ms QRS Dur : 082 ms QT Int : 446 ms P-R-T Axes : 064 016 056 degrees QTc Int : 448 ms SINUS RHYTHM WITH 1ST DEGREE A-V BLOCK POSSIBLE INFERIOR INFARCT , AGE UNDETERMINED ABNORMAL ECG WHEN COMPARED WITH ECG OF 31-JAN-2019 15:11, SINUS RHYTHM HAS REPLACED ATRIAL FIBRILLATION VENT. RATE HAS DECREASED BY [address] NO LONGER DEPRESSED IN ANTERIOR LEADS NONSPECIFIC T WAVE ABNORMALITY NO LONGER EVIDENT IN ANTERIOR LEADS QT HAS LENGTHENED Confirmed by ALO LOUIE, CATARINA ([id number]) on 02/01/2019 10:15:43 AM Referred By: Confirmed By:CATARINA PRAJAPATI MD
--- NOTE | 2019-02-01 10:15 | EKG ---
Test Reason : Blood Pressure : / mmHG Vent. Rate : 102 BPM Atrial Rate : 416 BPM P-R Int : 000 ms QRS Dur : 064 ms QT Int : 272 ms P-R-T Axes : 000 018 -84 degrees QTc Int : 354 ms ATRIAL FIBRILLATION WITH RAPID VENTRICULAR RESPONSE NONSPECIFIC ST AND T WAVE ABNORMALITY ABNORMAL ECG WHEN COMPARED WITH ECG OF 26-DEC-2017 08:02, ATRIAL FIBRILLATION HAS REPLACED SINUS RHYTHM ST NOW DEPRESSED IN ANTERIOR LEADS NONSPECIFIC T WAVE ABNORMALITY NOW EVIDENT IN INFERIOR LEADS NONSPECIFIC T WAVE ABNORMALITY NOW EVIDENT IN ANTERIOR LEADS Confirmed by ALO LOUIE, CATARINA ([id number]) on 02/01/2019 10:15:20 AM Referred By: Confirmed By:CATARINA PRAJAPATI MD
--- NOTE | 2019-02-01 10:48 | PN ---
Progress Note, Physician History of Present Illness: Pt is an 83 yo man with h/o CAD s/p PCI, stent, CABG, Asthma, BPH who present with a complaint of cough which has been present for the past 3 days No chest pain, fevers, chills No palpitations Pt denies orthopnea Pt denies dyspnea on exertion Pt travelled from [place] 1 month ago - Current Medication List Current Medications: Active Medications Albuterol Sulfate (Ventolin 0.083% Nebulizer Soln -) 1 amp NEB Q1H PRN PRN Reason: SHORT OF BREATH/WHEEZING Albuterol/Ipratropium (Duoneb -) 1 amp NEB RQID [facility] Last Admin: 02/01/19 08:07 Dose: 1 amp Atorvastatin Calcium (Lipitor -) 20 mg PO HS [facility] Diltiazem HCl (Cardizem -) 30 mg PO Q6HPO [facility] Last Admin: 02/01/19 06:20 Dose: 30 mg Diltiazem HCl (Cardizem Injection -) 5 mg IVPUSH Q4H PRN PRN Reason: TACHYCARDIA Heparin Sodium (Porcine) (Heparin -) 1,000 unit IVPUSH PRN PRN PRN Reason: Heparin Heparin Sodium (Porcine) (Heparin -) 5,000 unit IVPUSH PRN PRN PRN Reason: Heparin HEPARIN SOD,PORK IN 0.45% NACL (Heparin-1/2ns 25,000 Units/500) 25,000 unit in 500 mls @ 16 mls/hr IVPB TITR [facility]; Protocol Last Titration: 02/01/19 06:51 Dose: 650 units/hr, 13 mls/hr Montelukast Sodium (Singulair -) 10 mg PO DAILY [facility] Last Admin: 02/01/19 10:15 Dose: 10 mg - Objective Vital Signs: Vital Signs Temperature 98.4 F 02/01/19 06:20 Pulse Rate 65 02/01/19 06:20 Respiratory Rate 16 02/01/19 06:20 Blood Pressure 115/56 L 02/01/19 06:20 O2 Sat by Pulse Oximetry (%) 94 L 02/01/19 06:20 Eyes: Yes: WNL, Conjunctiva Clear, EOM Intact HENT: Yes: WNL, Atraumatic, Normocephalic Neck: Yes: WNL, Supple, Trachea Midline Cardiovascular: Yes: Pulse Irregular, S1, S2 Respiratory: Yes: WNL, Regular, CTA Bilaterally Gastrointestinal: Yes: WNL, Normal Bowel Sounds Genitourinary: Yes: WNL Musculoskeletal: Yes: WNL Extremities: Yes: WNL Edema: No Integumentary: Yes: WNL Neurological: Yes: WNL, Alert, Oriented ...Motor Strength: WNL Psychiatric: Yes: WNL Labs: CBC, BMP 02/01/19 05:10 02/01/19 05:10 INR, PTT INR 1.10 (0.83-1.09) H 02/01/19 05:10 Assessment/Plan - Problems (1) HTN (hypertension) Assessment/Plan: on diltiazem for HR and BP control. F/u ECHO for LVEF, Wall thickness. Code(s): I10 - ESSENTIAL (PRIMARY) HYPERTENSION (2) New onset a-fib Assessment/Plan: On diltiazem for HR control. On IV heparin for anticoagulation. ECHO for LVEF, wall motion and thickness, chamber sizes, valve status. 1st TNI < 0.02. F/u EKG; telemetry. Code(s): I48.91 - UNSPECIFIED ATRIAL FIBRILLATION (3) Cough Code(s): R05 - COUGH (4) Asthma Assessment/Plan: remote history Code(s): J45.909 - UNSPECIFIED ASTHMA, UNCOMPLICATED (5) Hyperlipidemia Assessment/Plan: on statin. F/u lipid profile. Code(s): E78.5 - HYPERLIPIDEMIA, UNSPECIFIED
--- NOTE | 2019-02-01 11:31 | ECHO ---
Name: JOLIE LEBRON Exam:Adult Echocardiogram Study Date: 02/01/2019 08:14 AM Age: 83 yrs Reason For Study: NEW ONSET ATRIAL FIB Height: 60 in Weight: 140 lb BSA: 1.6 m2 MMode/2D Measurements & Calculations IVSd: 0.79 cm Ao root diam: 3.4 cm LVIDd: 4.6 cm LA dimension: 4.8 cm LVIDs: 3.5 cm ACS: 0.99 cm LVPWd: 0.97 cm IVSs: 0.68 cm LVPWs: 0.93 cm EDV(Teich): 98.0 ml ESV(Teich): 51.1 ml LVOT diam: 1.8 cm Doppler Measurements & Calculations MV E max christofer: 103.2 cm/sec Ao V2 max: 246.1 cm/sec MV A max christofer: 72.8 cm/sec Ao max P.3 mmHg MV E/A: 1.4 Ao V2 mean: 164.9 cm/sec Ao mean P.7 mmHg Ao V2 VTI: 56.4 cm SARKIS(I,D): 0.75 cm2 AI P1/2t: 416.3 msec SARKIS(V,D): 0.69 cm2 AI max christofer: 375.1 cm/sec LV V1 max P.8 mmHg AI max P.3 mmHg LV V1 mean P.0 mmHg AI dec slope: 263.9 cm/sec2 LV V1 max: 67.7 cm/sec LV V1 mean: 49.7 cm/sec LV V1 VTI: 16.8 cm MR max christofer: 461.5 cm/sec SV(LVOT): 42.3 ml MR max P.2 mmHg TR max christofer: 262.0 cm/sec Med Peak E' Christofer: 5.8 cm/sec TR max P.5 mmHg Med E/e': 17.7 Lat Peak E' Christofer: 7.7 cm/sec Lat E/e': 13.4 Procedure A two-dimensional transthoracic echocardiogram with color flow and Doppler was performed. Left Ventricle The left ventricular size, thickness and function are normal. The left ventricular ejection fraction is normal. The transmitral spectral Doppler flow pattern is suggestive of pseudonormalization. Septal mo tion is consistent with post-operative state. Right Ventricle The right ventricle is normal in size and function. Atria The left atrium is moderately dilated. The right atrium is moderately dilated. Mitral Valve There is mild mitral valve thickening. There is no mitral valve stenosis. There is mild mitral regurg itation. Tricuspid Valve There is mild tricuspid valve thickening. There is no tricuspid stenosis. There is mild tricuspid regurgitation. Right ventricular systolic pressure is elevated at 30-40mmHg. Aortic Valve The aortic valve is trileaflet. There is moderate aortic valve thickening. There is moderate aortic sclerosis.;. Hemodynamically significant valvular aortic stenosis cannot be excluded. Mild aortic regurgitation. Pulmonic Valve The pulmonic valve is not well visualized. Great Vessels The aortic root is normal size. Pericardium/Pleura There is no pericardial effusion. Interpretation Summary The left ventricular size, thickness and function are normal The left ventricular ejection fraction is normal. The left atrium is moderately dilated. The right atrium is moderately dilated. There is mild mitral regurgitation. There is mild tricuspid regurgitation. Right ventricular systolic pressure is elevated at 30-40mmHg. The aortic valve is trileaflet. There is moderate aortic valve thickening. There is moderate aortic sclerosis.; Hemodynamically significant valvular aortic stenosis cannot be excluded. Septal motion is consistent with post-operative state. The transmitral spectral Doppler flow pattern is suggestive of pseudonormalization. MD Carlos Rodriguez 02/01/2019 11:30 AM
[2019-02-01] MEDS ORDERED: APIXABAN 2.5 MG TABLET PO SCH (11:45)
[2019-02-01] MEDS ORDERED: APIXABAN 5 MG TABLET PO ONE (12:18)
[2019-02-01] MEDS ORDERED: ALBUTEROL SO4 2.5/IPRATROPIUM 0.5 INH SOL 3 ML VIAL.NEB. NEB ONE (12:20)
[2019-02-01 12:43] VITALS: PULSE 68
[2019-02-01 13:33] LABS: URINE APPEARANCE CLEAR; URINE BILIRUBIN NEGATIVE (NEGATIVE); URINE COLOR YELLOW; URINE GLUCOSE (UA) NEGATIVE (NEGATIVE); URINE KETONE TRACE (NEGATIVE); URINE LEUK ESTERASE NEGATIVE (NEGATIVE); URINE NITRITE NEGATIVE (NEGATIVE); URINE PROTEIN NEGATIVE (NEGATIVE)
[2019-02-01 13:45] LABS: RATIO URIN PROTEIN/URIN CREAT 0.07 MG/DL
--- NOTE | 2019-02-01 14:50 | DS ---
Physical Exam: SUBJECTIVE: Patient seen and examined; no complaints; rate controlled OBJECTIVE: Vital Signs Period Temp Pulse Resp BP Sys/Dangelo Pulse Ox Last 24 Hr 98.0 F-98.6 F 65-112 14-20 110-135/56-74 93-98 PHYSICAL EXAM GENERAL: The patient is awake, alert, and fully oriented, in no acute distress. LUNGS: Breath sounds equal, clear to auscultation bilaterally, no wheezes, no crackles, no accessory muscle use. HEART: Regular rate and rhythm, S1, S2 without murmur, rub or gallop. ABDOMEN: Soft, nontender, nondistended, normoactive bowel sounds, no guarding, no rebound, no hepatosplenomegaly, no masses. EXTREMITIES: 2+ pulses, warm, well-perfused, no edema. NEUROLOGICAL: Cranial nerves II through XII grossly intact. Normal speech, gait not observed. PSYCH: Normal mood, normal affect. SKIN: Warm, dry, normal turgor, no rashes or lesions noted. LABS Laboratory Results - last 24 hr 01/31/19 01/31/19 01/31/19 23:05 23:05 23:05 WBC RBC Hgb Hct MCV MCH MCHC RDW Plt Count MPV Absolute Neuts (auto) Neutrophils % Lymphocytes % Monocytes % Eosinophils % Basophils % Nucleated RBC % PT with INR INR PTT (Actin FS) Sodium Potassium Chloride Carbon Dioxide Anion Gap BUN Creatinine Creat Clearance w eGFR Random Glucose Calcium Phosphorus Magnesium Troponin I < 0.02 B-Natriuretic Peptide 3609.3 H Triglycerides Cholesterol Total LDL Cholesterol HDL Cholesterol TSH 0.52 Urine Color Urine Appearance Urine pH Ur Specific [place] Urine Protein Urine Glucose (UA) Urine Ketones Urine Blood Urine Nitrite Urine Bilirubin Urine Urobilinogen Ur Leukocyte Esterase Urine WBC (Auto) Urine RBC (Auto) Urine Casts (Auto) U Epithel Cells (Auto) Urine Bacteria (Auto) U Random Total Protein Ur Random Sodium Ur Random Chloride Urine Creatinine Protein/Creatinin Ratio Influenza A (Rapid) Influenza B (Rapid) 02/01/19 02/01/19 02/01/19 01:30 01:50 02:18 WBC RBC Hgb Hct MCV MCH MCHC RDW Plt Count MPV Absolute Neuts (auto) Neutrophils % Lymphocytes % Monocytes % Eosinophils % Basophils % Nucleated RBC % PT with INR 13.40 H INR 1.13 H PTT (Actin FS) 68.5 H Sodium Potassium Chloride Carbon Dioxide Anion Gap BUN Creatinine Creat Clearance w eGFR Random Glucose Calcium Phosphorus Magnesium Troponin I B-Natriuretic Peptide Triglycerides Cholesterol Total LDL Cholesterol HDL Cholesterol TSH Urine Color Yellow Urine Appearance Clear Urine pH 5.[address] [place] 1.019 Urine Protein 1+ H Urine Glucose (UA) Negative Urine Ketones Trace H Urine Blood Negative Urine Nitrite Negative Urine Bilirubin Negative Urine Urobilinogen 0.2 Ur Leukocyte Esterase Negative Urine WBC (Auto) 1 Urine RBC (Auto) 2 Urine Casts (Auto) 4 U Epithel Cells (Auto) 0.5 Urine Bacteria (Auto) 1.4 U Random Total Protein Ur Random Sodium Ur Random Chloride Urine Creatinine Protein/Creatinin Ratio Influenza A (Rapid) Influenza B (Rapid) 02/01/19 02/01/19 02/01/19 05:10 05:10 05:10 WBC 6.8 RBC 4.14 Hgb 12.1 Hct 36.7 MCV 88.7 MCH 29.3 MCHC 33.0 RDW 13.2 Plt Count 201 MPV 11.1 Absolute Neuts (auto) 5.6 Neutrophils % 82.9 H D Lymphocytes % 14.8 D Monocytes % 2.2 L D Eosinophils % 0.0 D Basophils % 0.1 Nucleated RBC % 0 PT with INR 13.00 INR 1.10 H PTT (Actin FS) 93.2 H Sodium 137 Potassium 4.6 Chloride 105 Carbon Dioxide 24 Anion Gap 8 BUN 30 H Creatinine 2.0 H Creat Clearance w eGFR 32.07 Random Glucose 154 H Calcium 8.7 Phosphorus 3.7 Magnesium 2.2 Troponin I B-Natriuretic Peptide Triglycerides 75 Cholesterol 132 Total LDL Cholesterol 78 HDL Cholesterol 43 TSH 0.52 Urine Color Urine Appearance Urine pH Ur Specific [place] Urine Protein Urine Glucose (UA) Urine Ketones Urine Blood Urine Nitrite Urine Bilirubin Urine Urobilinogen Ur Leukocyte Esterase Urine WBC (Auto) Urine RBC (Auto) Urine Casts (Auto) U Epithel Cells (Auto) Urine Bacteria (Auto) U Random Total Protein Ur Random Sodium Ur Random Chloride Urine Creatinine Protein/Creatinin Ratio Influenza A (Rapid) Influenza B (Rapid) 02/01/19 02/01/19 02/01/19 08:11 12:30 13:24 WBC RBC Hgb Hct MCV MCH MCHC RDW Plt Count MPV Absolute Neuts (auto) Neutrophils % Lymphocytes % Monocytes % Eosinophils % Basophils % Nucleated RBC % PT with INR INR PTT (Actin FS) 74.7 H Sodium Potassium Chloride Carbon Dioxide Anion Gap BUN Creatinine Creat Clearance w eGFR Random Glucose Calcium Phosphorus Magnesium Troponin I B-Natriuretic Peptide Triglycerides Cholesterol Total LDL Cholesterol HDL Cholesterol TSH Urine Color Urine Appearance Urine pH Ur Specific [place] Urine Protein Urine Glucose (UA) Urine Ketones Urine Blood Urine Nitrite Urine Bilirubin Urine Urobilinogen Ur Leukocyte Esterase Urine WBC (Auto) Urine RBC (Auto) Urine Casts (Auto) U Epithel Cells (Auto) Urine Bacteria (Auto) U Random Total Protein Ur Random Sodium < 18 L Ur Random Chloride < 11 L Urine Creatinine Protein/Creatinin Ratio Influenza A (Rapid) Negative Influenza B (Rapid) Negative 02/01/19 02/01/19 13:24 13:24 WBC RBC Hgb Hct MCV MCH MCHC RDW Plt Count MPV Absolute Neuts (auto) Neutrophils % Lymphocytes % Monocytes % Eosinophils % Basophils % Nucleated RBC % PT with INR INR PTT (Actin FS) Sodium Potassium Chloride Carbon Dioxide Anion Gap BUN Creatinine Creat Clearance w eGFR Random Glucose Calcium Phosphorus Magnesium Troponin I B-Natriuretic Peptide Triglycerides Cholesterol Total LDL Cholesterol HDL Cholesterol TSH Urine Color Yellow Urine Appearance Clear Urine pH 5.[address] [place] 1.022 Urine Protein Negative Urine Glucose (UA) Negative Urine Ketones Trace H Urine Blood Negative Urine Nitrite Negative Urine Bilirubin Negative Urine Urobilinogen 1.0 Ur Leukocyte Esterase Negative Urine WBC (Auto) Urine RBC (Auto) Urine Casts (Auto) U Epithel Cells (Auto) Urine Bacteria (Auto) U Random Total Protein 19.4 H Ur Random Sodium Ur Random Chloride Urine Creatinine 246.0 Protein/Creatinin Ratio 0.070 Influenza A (Rapid) Influenza B (Rapid) HOSPITAL COURSE: Date of Admission:01/31/19 Date of Discharge: 02/01/19 This is a 83 year old male with a history of CABG, HTN, HLD, who presents with sob/cough with sputum production, found to be in rapid atrial fibrillation with RVR. Evaluated by cardiology. Started on heparin drip and rate controlled with cardizem 30mg po q6h. Sent home on eliquis 2.5mg daily and cardizem 240mg daily. Minutes to complete discharge: 35 Discharge Summary Reason For Visit: [employer] Current Active Problems Asthma (Acute) Atrial fibrillation with RVR (Acute) CKD (chronic kidney disease) (Acute) HTN (hypertension) (Acute) Hyperlipidemia (Acute) New onset a-fib (Acute) Condition: Stable - Instructions Diet, Activity, Other Instructions: Mr. Shafer, you have been evaluated for shortness of breath. You were found to have an irregular heart rhythm called atrial fibrillation. We are starting you on two new medications. Cardizem, is a blood pressure medication that controls your heart rate. Eliquis is a blood thinner, to help prevent strokes in people with atrial fibrillation. Medications: START cardizem 240mg daily START eliquis 2.5 mg twice per day STOP taking plavix STOP taking amlodipine continue all other prescribed mediations Please follow up with your primary with in one week. Please follow up with the player piano technician that you have been referred to with in one week. If you experience any worsening of symptoms, including chest pain, shortness of breath, leg swelling, bleeding, dark stools, please return to the emergency room. Referrals: Micah Davalos MD [Staff Physician] - Disposition: HOME - Home Medications Comprehensive Discharge Medication List: Ambulatory Orders Albuterol Sulfate Inhaler - [Ventolin HFA Inhaler -] 1 - 2 inh PO Q4H PRN Montelukast Sodium [Singulair] 10 mg PO DAILY 01/31/19 Simvastatin 40 mg PO DAILY 01/31/19 Tamsulosin HCl [Flomax] 0.4 mg PO DAILY 01/31/19 Apixaban [Eliquis -] 2.5 mg PO BID 30 Days #60 tablet 02/01/19 Diltiazem Cd [Cardizem Cd -] 240 mg PO DAILY #30 cap.cd.24h 02/01/19 This patient is new to me today: Yes Date on this admission: 02/01/19 Emergency Visit: Yes ED Registration Date: 01/31/19 Care time: The patient presented to the Emergency Department on the above date and was hospitalized for further evaluation of their emergent condition. Critical Care patient: No - Discharge Referral Referred to [facility] Med [facility] No
[2019-02-01 15:35] VITALS: BP 137/63; TEMP 98.2
[2019-02-01] MEDS ORDERED: ATORVASTATIN CA 20 MG TABLET (FP) PO SCH (22:00)
== END 2019-02-01 15:34 | disposition home or self-care (01) ==
LOC: JER 10:41 → JERBED 14:40
PROVIDERS: ADMIT Hospitalist; ATTEND Internal Medicine
PROC: 3E0333Z Introduction of Anti-inflammatory into Peripheral Vein, Percutaneous Approach (ICD-10-PCS; principal; 2019-01-31)
PROC: 3E033GC Introduction of Other Therapeutic Substance into Peripheral Vein, Percutaneous Approach (ICD-10-PCS; 2019-01-31)
PROC: 3E0337Z Introduction of Electrolytic and Water Balance Substance into Peripheral Vein, Percutaneous Approach (ICD-10-PCS; 2019-01-31)
PROC: 3E0F7GC Introduction of Other Therapeutic Substance into Respiratory Tract, Via Natural or Artificial Opening (ICD-10-PCS; 2019-01-31)
DX: I48.91 Unspecified atrial fibrillation (principal); I12.9 Hypertensive chronic kidney disease with stage 1 through stage 4 chronic kidney disease, or unspecified chronic kidney disease; N18.3 Chronic kidney disease, stage 3 (moderate); E78.5 Hyperlipidemia, unspecified; J45.909 Unspecified asthma, uncomplicated; I25.10 Atherosclerotic heart disease of native coronary artery without angina pectoris; N40.0 Benign prostatic hyperplasia without lower urinary tract symptoms; J06.9 Acute upper respiratory infection, unspecified; R79.89 Other specified abnormal findings of blood chemistry; R05 Cough; Z95.5 Presence of coronary angioplasty implant and graft; Z87.891 Personal history of nicotine dependence; Z95.1 Presence of aortocoronary bypass graft; Z88.0 Allergy status to penicillin
CPT/HCPCS: 36415; 71045-TC-FY; 80048; 80053; 80061; 81003; 82436; 82550; 82553; 82570; 83721; 83735; 83880; 84100; 84133; 84156; 84300; 84443; 84484; 85025; 85610; 85730; 87086; 87804; 87899; 93005; 93010; 93306-TC; 94640; 96361; 96374; 99285-25; G0378; J7030

== ENCOUNTER 2024-09-14 05:10 | Inpatient (IN) | payer MEDICARE, OTHER ==
[2024-09-14 05:47] LABS: BASO % 0.6 % (0-2.0); EOS % 0.7 % (0-4.5); HEMOGLOBIN 13.5 GM/dL (11.7-16.9); MCH 29.6 pg (25.7-33.7); MCHC 32.8 g/dl (32.0-35.9); MEAN CELL VOLUME 90.3 fl (80-96); MEAN PLT VOLUME 10.4 fl (7.5-11.1); MONO % 15.4 % (3.8-10.2); NEUT % 66.3 % (42.8-82.8); PLATELET COUNT 151 10^3/uL (134-434); RBC 4.54 M/mm3 (4.00-5.60); RDW 13.8 % (11.9-15.9)
[2024-09-14] MEDS ORDERED: ACETAMINOPHEN INJECTION 100 ML ONE (05:51)
[2024-09-14] MEDS: ACETAMINOPHEN 1000 MG/100 ML BAG IVPB ONE ×2 (05:57→16:47)
[2024-09-14 06:56] LABS: POTASSIUM 4.7 mmol/L (3.5-5.1)
[2024-09-14 06:59] LABS: ALBUMIN 3.2 g/dl (3.4-5.0); BLOOD UREA NITROGEN 21.6 mg/dL (7-18)
[2024-09-14 07:02] LABS: CREATININE 1.9 mg/dL (0.55-1.3)
[2024-09-14 07:03] LABS: BILIRUBIN,TOTAL 1.4 mg/dL (0.2-1); TOT PROT 6.9 g/dl (6.4-8.2)
[2024-09-14] MEDS: SODIUM CHLORIDE 1,000 ML IV STA (07:41)
[2024-09-14 08:08] LABS: EPI CELLS 12 /uL (0-25.1); HYALINE CASTS 1 /uL (0-3.1); PH,URINE 5.5 (5.0-8.0); URINE APPEARANCE CLEAR; URINE BACTERIA 18 /uL (0-1359); URINE BILIRUBIN NEGATIVE (NEGATIVE); URINE COLOR YELLOW; URINE GLUCOSE (UA) NEGATIVE (NEGATIVE); URINE KETONE NEGATIVE (NEGATIVE); URINE LEUK ESTERASE NEGATIVE (NEGATIVE); URINE NITRITE NEGATIVE (NEGATIVE); URINE PROTEIN 2+ (NEGATIVE); URINE RBC 19 /uL (0-23.9); URINE WBC 34 /uL (0-25.8)
[2024-09-14] MEDS ORDERED: VANCOMYCIN HCL 1,500 MG in DEXTROSE 5%-WATER - 500 ML IVPB ONE (09:32)
[2024-09-14] MEDS ORDERED: CEFEPIME 1 GM/100 ML BAG IVPB ONE (10:08)
[2024-09-14] MEDS: CEFEPIME HCL 1 GM VIAL (RESTRICTED TO ID) IVPB ONE (10:20)
[2024-09-14 10:35] LABS: INR 1.22 (0.83-1.09)
[2024-09-14 10:38] LABS: ACTIVATED PTT 33.5 SECONDS (25.2-36.5)
[2024-09-14] MEDS ORDERED: SUCCINYLCHOLINE CHLORIDE 200 MG/10 ML SYRINGE ONE (12:14)
[2024-09-14] MEDS ORDERED: ROCURONIUM BROMIDE 50 MG/5 ML SYRINGE ONE ×2 (12:14→13:47)
[2024-09-14] MEDS ORDERED: MIDAZOLAM HCL 2 MG/2 ML SINGLE DOSE VIAL ONE (12:21)
[2024-09-14] MEDS ORDERED: PHENYLEPHRINE HCL 10 MG/1 ML SINGLE DOSE VIAL ONE (12:22)
[2024-09-14] MEDS ORDERED: PROPOFOL 20 ML ONE (13:11)
[2024-09-14] MEDS ORDERED: GLYCOPYRROLATE 0.2 MG/1 ML VIAL ONE (13:31)
[2024-09-14] MEDS ORDERED: HYDROmorphone HCl 2 MG/ML VIAL ONE (13:36)
[2024-09-14] MEDS: ALBUMIN HUMAN 5% 500 ML IV SOLUTION IV ONE (13:45)
[2024-09-14] MEDS ORDERED: METOPROLOL TARTRATE 5 MG/5 ML VIAL ONE (13:56)
[2024-09-14] MEDS ORDERED: MAGNESIUM SULF 50% (8.12 MEQ/2 ML-1 GM VIAL) ONE (13:56)
[2024-09-14] MEDS ORDERED: LIDOCAINE HCL/PF 2% SDV 5ML VIAL ONE (13:57)
[2024-09-14] MEDS ORDERED: BUPIVACAINE LIPOSOME/PF (EXPAREL) 266 MG/20 ML VIAL ONE (14:44)
[2024-09-14] MEDS ORDERED: BUPIVACAINE HCL/PF 0.5% (5MG/ML) 10 ML VIAL ONE (14:44)
[2024-09-14] MEDS ORDERED: SUGAMMADEX SODIUM 200 MG/2 ML VIAL ONE ×2 (15:03→15:37)
[2024-09-14] MEDS ORDERED: LABETALOL HCL 20 MG/4 ML VIAL ONE (15:33)
[2024-09-14] MEDS ORDERED: ONDANSETRON 4 MG/2 ML VIAL IVPUSH PRN (16:09)
[2024-09-14] MEDS: VANCOMYCIN PREMIX 1.5 GM 1,500 MG/300 ML BAG IVPB ONE (17:54)
[2024-09-14] MEDS: LACTATED RINGERS SOLUTION 1,000 ML IV SCH (19:40)
[2024-09-14] MEDS: CHLORHEXIDINE GLUCONATE 4% CLEANSER FOR DECOLONIZATION TP SCH (21:35)
[2024-09-14] MEDS: MUPIROCIN 2% TOPICAL OINTMENT FOR DECOLONIZATION NS SCH (21:35)
[2024-09-15 08:12] LABS: HEMOGLOBIN 11.9 GM/dL (11.7-16.9); MCH 29.4 pg (25.7-33.7); MCHC 33.2 g/dl (32.0-35.9); MEAN CELL VOLUME 88.6 fl (80-96); MEAN PLT VOLUME 10.8 fl (7.5-11.1); PLATELET COUNT 156 10^3/uL (134-434); RBC 4.06 M/mm3 (4.00-5.60); RDW 13.7 % (11.9-15.9); WHITE BLOOD COUNT 18.5 K/mm3 (4.0-10.0)
[2024-09-15 08:38] LABS: POTASSIUM 5.2 mmol/L (3.5-5.1)
[2024-09-15 08:40] LABS: CALCIUM 8.2 mg/dL (8.5-10.1)
[2024-09-15 08:44] LABS: CREATININE 1.8 mg/dL (0.55-1.3)
[2024-09-15] MEDS: ACETAMINOPHEN 1000 MG/100 ML BAG IVPB SCH (09:46)
[2024-09-15] MEDS ORDERED: ENOXAPARIN NA (PORCINE) 40 MG/0.4 ML DISP.SYRIN SQ SCH (10:00)
[2024-09-15] MEDS: CEFTRIAXONE 2 GM-D5W BAG 2 GM/50 ML BAG IVPB ONE (10:20)
[2024-09-15] MEDS: HEPARIN NA (PORCINE) 5,000 UNITS/ML 1ML VIAL SQ SCH (14:28)
[2024-09-15] MEDS: ERTAPENEM SODIUM 0.5 GM in SODIUM CHLORIDE 50 ML IVPB SCH (21:46)
[2024-09-16 08:24] LABS: BASO % 0.2 % (0-2.0); HEMATOCRIT 32.7 % (35.4-49); HEMOGLOBIN 10.8 GM/dL (11.7-16.9); LYMPH % 6.3 % (8-40); MCH 29.6 pg (25.7-33.7); MCHC 33.2 g/dl (32.0-35.9); MEAN CELL VOLUME 89.1 fl (80-96); MEAN PLT VOLUME 11.4 fl (7.5-11.1); MONO % 11.6 % (3.8-10.2); NEUT % 81.9 % (42.8-82.8); PLATELET COUNT 152 10^3/uL (134-434); RBC 3.67 M/mm3 (4.00-5.60); RDW 13.6 % (11.9-15.9); WHITE BLOOD COUNT 18.5 K/mm3 (4.0-10.0)
[2024-09-16 08:52] LABS: BILIRUBIN,TOTAL 0.4 mg/dL (0.2-1); CALCIUM 7.9 mg/dL (8.5-10.1)
[2024-09-16 08:53] LABS: BLOOD UREA NITROGEN 28.8 mg/dL (7-18); MAGNESIUM 1.9 mg/dL (1.8-2.4)
[2024-09-16 08:55] LABS: ALBUMIN 2.4 g/dl (3.4-5.0); CREATININE 1.7 mg/dL (0.55-1.3)
[2024-09-16 08:56] LABS: PHOSPHOROUS 4.7 mg/dL (2.5-4.9)
[2024-09-16 08:57] LABS: TOT PROT 5.1 g/dl (6.4-8.2)
[2024-09-16] MEDS: ERTAPENEM SODIUM 1 GM in SODIUM CHLORIDE 50 ML IVPB SCH (11:13)
[2024-09-16] MEDS ORDERED: METOPROLOL TARTRATE 5 MG/5 ML VIAL IVPUSH PRN (13:36)
[2024-09-16] MEDS: METOPROLOL TARTRATE 5 MG/5 ML VIAL IVPUSH PRN (13:36)
[2024-09-16] MEDS: dilTIAZem HCL 30 MG TABLET NGT SCH (17:20)
[2024-09-16] MEDS: LACTATED RINGERS SOLUTION 1,000 ML IV SCH (18:30)
[2024-09-16] MEDS: ACETAMINOPHEN 1000 MG/100 ML BAG IVPB SCH (22:38)
[2024-09-16] MEDS: HEPARIN NA (PORCINE) 5,000 UNITS/ML 1ML VIAL SQ SCH (22:39)
[2024-09-17] MEDS: dilTIAZem HCL 30 MG TABLET PO SCH (00:36)
[2024-09-17 09:49] LABS: BASO % 0.4 % (0-2.0); EOS % 0.5 % (0-4.5); HEMATOCRIT 34.1 % (35.4-49); HEMOGLOBIN 11.1 GM/dL (11.7-16.9); LYMPH % 10.5 % (8-40); MCH 29.4 pg (25.7-33.7); MCHC 32.7 g/dl (32.0-35.9); MEAN CELL VOLUME 89.8 fl (80-96); MEAN PLT VOLUME 10.3 fl (7.5-11.1); MONO % 8.4 % (3.8-10.2); NEUT % 80.2 % (42.8-82.8); PLATELET COUNT 190 10^3/uL (134-434); RBC 3.79 M/mm3 (4.00-5.60); RDW 13.9 % (11.9-15.9)
[2024-09-17 10:12] LABS: POTASSIUM 4.9 mmol/L (3.5-5.1)
[2024-09-17 10:20] LABS: CALCIUM 8.2 mg/dL (8.5-10.1)
[2024-09-17 10:22] LABS: ALBUMIN 2.3 g/dl (3.4-5.0); BLOOD UREA NITROGEN 34.1 mg/dL (7-18)
[2024-09-17 10:25] LABS: CREATININE 1.5 mg/dL (0.55-1.3)
[2024-09-17 10:26] LABS: BILIRUBIN,TOTAL 0.6 mg/dL (0.2-1); TOT PROT 5.2 g/dl (6.4-8.2)
[2024-09-17] MEDS: ERTAPENEM SODIUM 0.5 GM in SODIUM CHLORIDE 50 ML IVPB SCH (10:43)
[2024-09-18 09:37] LABS: HEMATOCRIT 37.2 % (35.4-49); HEMOGLOBIN 12.4 GM/dL (11.7-16.9); MCH 29.4 pg (25.7-33.7); MCHC 33.4 g/dl (32.0-35.9); MEAN CELL VOLUME 88.2 fl (80-96); MEAN PLT VOLUME 10.3 fl (7.5-11.1); PLATELET COUNT 235 10^3/uL (134-434); RBC 4.22 M/mm3 (4.00-5.60); RDW 14.1 % (11.9-15.9); WHITE BLOOD COUNT 14.4 K/mm3 (4.0-10.0)
[2024-09-18] MEDS: VANCOMYCIN PREMIX 1.5 GM 1,500 MG/300 ML BAG IVPB ONE (10:01)
[2024-09-18] MEDS: ALBUMIN HUMAN 5% 500 ML IV SOLUTION IV ONE (10:01)
[2024-09-18 10:03] LABS: POTASSIUM 4.4 mmol/L (3.5-5.1)
[2024-09-18 10:04] LABS: CALCIUM 8.2 mg/dL (8.5-10.1)
[2024-09-18 10:05] LABS: ALBUMIN 2.4 g/dl (3.4-5.0); BLOOD UREA NITROGEN 32.2 mg/dL (7-18)
[2024-09-18 10:08] LABS: CREATININE 1.3 mg/dL (0.55-1.3)
[2024-09-18 10:09] LABS: BILIRUBIN,TOTAL 0.6 mg/dL (0.2-1)
[2024-09-18 10:11] LABS: TOT PROT 5.3 g/dl (6.4-8.2)
[2024-09-18 11:12] LABS: ANISOCYTOSIS 0; HELMET CELLS 0; HOWELL-JOLLY BODIES 0; MACROCYTOSIS 0; OVALOCYTE 0; ROULEAU 0; SICKELED CELLS 0; TARGET CELLS 0; TEAR DROP CELLS 0; TOXIC GRANULATION 0
[2024-09-19 09:01] LABS: HEMOGLOBIN 12.4 GM/dL (11.7-16.9); MCH 29.5 pg (25.7-33.7); MCHC 33.6 g/dl (32.0-35.9); MEAN CELL VOLUME 87.9 fl (80-96); MEAN PLT VOLUME 10.1 fl (7.5-11.1); PLATELET COUNT 292 10^3/uL (134-434); RBC 4.21 M/mm3 (4.00-5.60); RDW 14.2 % (11.9-15.9); WHITE BLOOD COUNT 12.4 K/mm3 (4.0-10.0)
[2024-09-19 09:20] LABS: POTASSIUM 4.5 mmol/L (3.5-5.1)
[2024-09-19 09:25] LABS: CALCIUM 8.2 mg/dL (8.5-10.1)
[2024-09-19 09:26] LABS: ALBUMIN 2.4 g/dl (3.4-5.0); BLOOD UREA NITROGEN 25.6 mg/dL (7-18)
[2024-09-19 09:29] LABS: CREATININE 1.3 mg/dL (0.55-1.3)
[2024-09-19 09:31] LABS: BILIRUBIN,TOTAL 0.6 mg/dL (0.2-1); TOT PROT 5.4 g/dl (6.4-8.2)
[2024-09-19] MEDS: BACITRACIN ZINC 15 GM TUBE TOPICAL OINTMENT TP SCH (10:47)
[2024-09-19 11:27] LABS: ANISOCYTOSIS 2+; MACROCYTOSIS 1+
[2024-09-19 15:23] VITALS: BMI 27.9
[2024-09-21 10:08] VITALS: BP 135/81; PULSE 72; RESP 20; TEMP 98.2
== END 2024-09-21 10:49 | disposition home health service (06) | DRG 330 ==
LOC: JER 05:10 → JERBED 10:16 → JICU 18:19 → J8W 09-16 18:09
PROVIDERS: ADMIT Internal Medicine; ATTEND Internal Medicine
PROC: 3E1M38Z Irrigation of Peritoneal Cavity using Irrigating Substance, Percutaneous Approach (ICD-10-PCS; 2024-09-14)
PROC: 0DT80ZZ Resection of Small Intestine, Open Approach (ICD-10-PCS; principal; 2024-09-14 12:30)
DX: K63.1 Perforation of intestine (nontraumatic) (principal); K63.0 Abscess of intestine; K66.8 Other specified disorders of peritoneum; I48.91 Unspecified atrial fibrillation; Z79.01 Long term (current) use of anticoagulants; I25.10 Atherosclerotic heart disease of native coronary artery without angina pectoris; N40.0 Benign prostatic hyperplasia without lower urinary tract symptoms; I12.9 Hypertensive chronic kidney disease with stage 1 through stage 4 chronic kidney disease, or unspecified chronic kidney disease; N18.9 Chronic kidney disease, unspecified; E78.5 Hyperlipidemia, unspecified; J45.909 Unspecified asthma, uncomplicated
CPT/HCPCS: 36415; 71045-TC-FY; 74018-TC-FY; 74177-TC; 80048; 80053; 81003; 83605; 83690; 83735; 84100; 84484; 85025; 85027; 85610; 85730; 86850; 86900; 86901; 87040; 87070; 87075; 87086; 87186; 87205; 87481; 87635; 88307-TC; 93005; 93010; 93306-TC; 94760; 97116-GP; 97161-GP; 99285-25; E0186; J0131; J1644; Q9967